=== PATIENT | female | born 1975 | race Caucasian/White ===

== ENCOUNTER 2020-09-28 14:12 | Emergency (ER) | payer SELFPAY ==
[~2020-09-28] VITALS: Ht 165.1 cm; Wt 42.2 kg
[2020-09-28 14:15] VITALS: BP_SYST 127
[2020-09-28] MEDS ORDERED: ONDANSETRON 4 MG ODT TAB PO ONE (15:30)
[2020-09-28 15:37] LABS: HEMOGLOBIN 9.6 g/dL (12.0-16.0); MEAN CORPUSCULAR HGB CONC 34 % (32-36); MONOCYTES # (AUTO) 0.4 K/uL (0.0-1.0); RED CELL DISTRIBUTION WIDTH 13.3 % (9.0-15.0); WHITE BLOOD COUNT (AUTO) 5.1 K/uL (4.8-10.8)
[2020-09-28 15:46] LABS: BASOPHILS % (AUTO) 0.5 % (0.0-2.0); EOSINOPHILS # (AUTO) 0.1 K/uL (0.0-0.4); EOSINOPHILS % (AUTO) 1.2 % (0.0-4.0); HEMATOCRIT 28.1 % (36-48); LYMPHOCYTES # (AUTO) 1.5 K/uL (1.0-5.5); LYMPHOCYTES % (AUTO) 29.9 % (20.5-51.5); MEAN CORPUSCULAR HEMOGLOBIN 33 pg (27-31); MEAN CORPUSCULAR VOLUME 95 fL (79.0-98.0); MONOCYTES % (AUTO) 7.9 % (1.7-9.3); NEUTROPHILS # (AUTO) 3.1 K/uL (1.8-7.7); NEUTROPHILS % (AUTO) 60.5 % (40.0-70.0); PLATELET COUNT (AUTO) 194 K/uL (130-430); RED BLOOD CELL COUNT(AUTO) 2.96 MIL/uL (4.2-6.2)
[2020-09-28 15:53] LABS: ANION GAP 8 (5-15); CALCIUM 8.4 mg/dL (8.4-11.0); CHLORIDE 107 mmol/L (98-107); CREATININE 0.72 mg/dL (0.55-1.30); GLUCOSE 106 mg/dL (70-99); POTASSIUM 3.3 mmol/L (3.5-5.1); SODIUM SERUM 143 mmol/L (136-145); UREA NITROGEN, BLOOD 18 mg/dL (8-21)
[2020-09-28 15:54] LABS: GFR AFRICAN AMERICAN 112 mL/min (>90)
[2020-09-28 15:57] LABS: C-REACTIVE PROTEIN QUANT < 0.2 mg/dL (0-0.5)
[2020-09-28 15:59] LABS: ALANINE AMINOTRANSFERASE 29 U/L (12-78); AMYLASE 57 U/L (0-100); ASPARTATE AMINOTRANSFERASE 14 U/L (10-37); LACTATE DEHYDROGENASE 142 U/L (81-234); LIPASE 73 U/L (73-393); TOTAL BILIRUBIN 0.2 mg/dL (0.0-1.0)
== END 2020-09-28 15:43 | disposition left against medical advice (07) ==
LOC: SED 14:12
DX: K59.00 Constipation, unspecified (principal); Z88.0 Allergy status to penicillin; Z88.6 Allergy status to analgesic agent; Z88.8 Allergy status to other drugs, medicaments and biological substances
CPT/HCPCS: 36415; 80053; 82150; 83605; 83615; 83690; 84484; 84703; 85025; 86140; 99283